=== PATIENT | female | born 1970 | race Caucasian/White ===

== ENCOUNTER → 2017-05-17 | Outpatient (CLI) | payer SELFPAY ==
[2017-05-17 14:06] LABS: HEMOGLOBIN 13.7 g/dL (12.2-16.2); LYMPH # 1.6 K/mm3 (0.7-4.5)
[2017-05-17 14:12] LABS: URINE BILIRUBIN - DIPSTICK NEGATIVE (NEG); URINE BLOOD 2+ (NEG)
[2017-05-17 14:30] LABS: URINE SQUAMOUS CELLS OCC #/hpf (0-5)
[2017-05-17 19:59] LABS: BUN 8 mg/dL (7-18)
[2017-05-17 21:47] LABS: GFR (ESTIMATED) 67 ML/MIN (59-)
[2017-05-18 09:37] LABS: Folate (Folic Acid) 13.5 ng/mL (>3.0)
== END ==
LOC: CARL-LAB 07:33
PROVIDERS: Emergency Medicine
DX: D64.9 Anemia, unspecified (principal); I10 Essential (primary) hypertension

== ENCOUNTER → 2017-05-18 | Outpatient (CLI) | payer SELFPAY ==
[2017-05-20 08:38] LABS: STOOL OCCULT BLOOD POSITIVE (NEG)
== END ==
LOC: LAB 10:00
PROVIDERS: Emergency Medicine
DX: D64.9 Anemia, unspecified (principal); I10 Essential (primary) hypertension
CPT/HCPCS: G0328

== ENCOUNTER → 2017-05-19 | Outpatient (CLI) | payer SELFPAY ==
[2017-05-20 08:38] LABS: STOOL OCCULT BLOOD POSITIVE (NEG)
== END ==
LOC: LAB 10:00
PROVIDERS: Emergency Medicine
DX: D64.9 Anemia, unspecified (principal); I10 Essential (primary) hypertension
CPT/HCPCS: G0328

== ENCOUNTER → 2017-07-15 | Outpatient (CLI) | payer SELFPAY ==
[2017-07-17 15:39] LABS: STOOL OCCULT BLOOD NEGATIVE (NEG)
== END ==
LOC: CARL-LAB 07:40
PROVIDERS: Emergency Medicine
DX: D64.9 Anemia, unspecified (principal)
CPT/HCPCS: G0328

== ENCOUNTER → 2017-07-16 | Outpatient (CLI) | payer SELFPAY ==
[2017-07-17 15:41] LABS: STOOL OCCULT BLOOD NEGATIVE (NEG)
== END ==
LOC: CARL-LAB 07:39
PROVIDERS: Emergency Medicine
DX: D64.9 Anemia, unspecified (principal); I10 Essential (primary) hypertension
CPT/HCPCS: G0328

== ENCOUNTER → 2017-07-17 | Outpatient (CLI) | payer SELFPAY ==
[2017-07-17 15:36] LABS: STOOL OCCULT BLOOD NEGATIVE (NEG)
[2017-07-19 14:39] LABS: Metanephrine, U,24hr 30 ug/24 hr (45-290); Metanephrine, Ur 11 ug/L (Undefined); Normetanephr.,U,24h 100 ug/24 hr (82-500); Normetanephrine, Ur 37 ug/L (Undefined)
[2017-07-21 18:38] LABS: Cortisol,F,ug/24hr,U 14 ug/24 hr (0-50); Cortisol,F,ug/L,U 5 ug/L (Undefined)
== END ==
LOC: CARL-LAB 07:38
PROVIDERS: Emergency Medicine
DX: D64.9 Anemia, unspecified (principal); I10 Essential (primary) hypertension
CPT/HCPCS: G0328

== ENCOUNTER → 2017-08-26 | Outpatient (CLI) | payer SELFPAY ==
[2017-08-30 12:36] LABS: Renin Activity <0.167 ng/mL/hr (0.167-5.380)
== END ==
LOC: CARL-LAB 09:09
PROVIDERS: Emergency Medicine
DX: I10 Essential (primary) hypertension (principal)

== ENCOUNTER → 2017-08-28 | Outpatient (CLI) | payer SELFPAY ==
[2017-09-04 13:38] LABS: Epinephrine, Urine <1
[2017-09-04 13:39] LABS: Epinephrine, U, 24hr <6; Norepinephrine, Ur <5
[2017-09-04 13:40] LABS: Norepinephrine,U,24h <30
[2017-09-04 13:41] LABS: Dopamine, Ur, 24hr 126; Dopamine, Urine 21
== END ==
LOC: LAB 00:46
PROVIDERS: Emergency Medicine
DX: R82.5 Elevated urine levels of drugs, medicaments and biological substances (principal)